=== PATIENT | male | born 1995 | race Caucasian/White ===

== ENCOUNTER 2020-04-19 10:15 | Outpatient (CLI) | payer BC | END 2020-04-19 10:16 | disposition home or self-care (01) | LOC: CTENTCT 10:15 | PROVIDERS: ATTEND Otolaryngology Plastic Surgery within the Head & Neck | DX: J32.9 Chronic sinusitis, unspecified (principal) | CPT/HCPCS: 70486 ==

== ENCOUNTER 2020-05-30 05:57 | Day surgery (SDC) | payer BC ==
[2020-05-29 11:06] VITALS: BMI 29.0
[2020-05-30] MEDS ORDERED: Bacitracin Zinc Ointment 30 gm TUBE ONE (06:46)
[2020-05-30] MEDS ORDERED: Lidocaine 1% w/Epinephrine 1:100K 20 ML VIAL ONE (06:46)
[2020-05-30] MEDS ORDERED: AFRIN NASAL MIST 15 ML BOT ONE ×2 (06:46→07:59)
[2020-05-30] MEDS ORDERED: Fentanyl 100 MCG/2 ML VIAL ONE ×3 (08:10→09:52)
[2020-05-30] MEDS ORDERED: methylPREDNISolone Acetate 40 mg/ml Vial ONE (08:58)
[2020-05-30] MEDS ORDERED: Meperidine HCl/PF 25 MG/ML VIAL ONE (09:35)
[2020-05-30] MEDS ORDERED: Ferric Subsulfate (ASTRINGYN) 8 GM VIAL ONE (09:36)
[2020-05-30] MEDS ORDERED: PROPOFOL 200 MG/20 ML VIAL ONE (09:37)
[2020-05-30] MEDS ORDERED: Lidocaine 1% PF 5 ML VIAL ONE (09:37)
[2020-05-30] MEDS ORDERED: Succinylcholine 200 MG/10 ml SYRINGE FS ONE (09:37)
[2020-05-30] MEDS ORDERED: Rocuronium Bromide 10 MG/ML (10ML VIAL) ONE (09:37)
[2020-05-30] MEDS ORDERED: Dexamethasone 20 MG/5 ML VIAL ONE (09:37)
[2020-05-30] MEDS ORDERED: PROPOFOL 20 ML ONE (09:41)
[2020-05-30] MEDS ORDERED: Hydrocodone-Acetamin 15 ML UDCUP ONE (10:58)
--- NOTE | 2020-05-30 15:39 | OP ---
DATE OF PROCEDURE: 05/30/2020 PREOPERATIVE DIAGNOSES: 1. Nasal septal deviation. 2. Bilateral inferior turbinate hypertrophy. 3. Bilateral nasal valve collapse. 4. Chronic adenotonsillitis. 5. Adenotonsillar hypertrophy. POSTOPERATIVE DIAGNOSES: 1. Nasal septal deviation. 2. Bilateral inferior turbinate hypertrophy. 3. Bilateral nasal valve collapse. 4. Chronic adenotonsillitis. 5. Adenotonsillar hypertrophy. PROCEDURES PERFORMED: 1. Nasal septoplasty. 2. Bilateral inferior turbinate submucosal resection. 3. Bilateral repair of nasal valve collapse. 4. Tonsillectomy and adenoidectomy. ESTIMATED BLOOD LOSS: 20 mL. COMPLICATIONS: None. ANESTHESIA: GETA. DESCRIPTION OF PROCEDURE: TONSILLECTOMY AND ADENOIDECTOMY: After consent was obtained, the patient was identified, brought to the operating room, and placed on the operating table in the supine position. General endotracheal anesthesia and intravenous access was obtained and we proceeded with positioning the patient for oropharyngeal surgery. Oropharyngeal exposure was obtained with a Britton-David mouth gag after a head drape was placed and secured with a towel clip. The Britton-David mouth gag was then suspended from the Liao tray and palatal elevation was achieved with a red rubber catheter. The right tonsil was addressed first. We used a curved Allis to grasp the tonsil and retract it medially as an anterior pillar incision was made. The retrotonsillar fascial plane was then established and blunt dissection was performed with the suction cautery. Blood vessels were anticipated, identified, and cauterized as they were encountered. Ultimately, dissection was carried to the posterior tonsillar pillar mucosa which was incised hemostatically, as well as the base of tongue connection. The tonsil was then passed off as a specimen and bleeding points within the tonsillar bed were cauterized under direct visualization. We subsequently turned our attention to the contralateral side, where using a similar technique, a near identical procedure was performed. Again, the tonsil was grasped and retracted medially with a curved Allis. The retrotonsillar fascial plane was established and while the anterior pillar was retracted medially, the hemostatic blunt dissection of the tonsil with a suction cautery was performed with blood vessels anticipated, identified, and cauterized as they were encountered. Again, dissection continued to the base of tongue and posterior tonsillar pillar mucosa which was incised in a hemostatic fashion. The tonsillar beds were then carefully inspected and bleeding points were identified and cauterized with a suction cautery. After this portion of the procedure, hemostasis was completely obtained. Under direct mirror visualization, we visualized the adenoid pad. Under direct mirror visualization, we removed the bulk of the adenoid tissue with the adenoid curette. We then packed the nasopharynx for an appropriate period of time with Mauro-Synephrine saturated tonsillar sponges. After a period of observation, we removed the pack. Under indirect mirror visualization, we obtained hemostasis and vaporization of residual adenoid tissue with electrocautery. The patient's oral cavity was copiously irrigated with iced saline and subsequently suctioned. After completion of the procedure, the nasal cavity and oropharynx were irrigated and suctioned as were the gastric contents. The patient was then awakened and transferred to the recovery room where the patient remained in stable condition prior to discharge to Day Stay. NASAL SEPTOPLASTY AND BILATERAL INFERIOR TURBINATE SUBMUCOSAL RESECTION: Patient was taken to the operating room and placed supine on the table. General endotracheal anesthesia was obtained by the anesthesia staff. Then 1% lidocaine with 1:100,000 epinephrine was injected into the nasal septum as well as the inferior turbinates. The patient was prepped and draped in standard surgical fashion. The Afrin pledgets were then removed. A [place] incision was made on the left nasal septum. Submucoperichondrial dissection was performed bilaterally of the deviated portions of the septum, which included the maxillary crest and the crest deviation, as well as the mid portion of the septum. Cartilage and bony deviation was removed, leaving a generous caudal and dorsal strut. Any straight pieces of cartilage were then placed within the cartilage press, pressed, straightened, and then placed between the mucoperichondrial flaps, which were then closed using a 4-0 gut stitch. The inferior turbinates were then punctured with the submucosal Coblation machine, and 3 separate coblations were delivered to the anterior inferior portion of the inferior turbinates. Following this, the nasal cavity was irrigated. All debris was removed. An orogastric tube was placed. Gastric contents and Coll[place] splints were then placed in the nasal cavity and sutured with a 3-0 silk stitch. Following this, the approach to the lateral nasal valve collapse was performed through the trans-cartilaginous endonasal incision. Small incision was made and then a sharp elevator was used to elevate the periosteum over the nasal bone. A small graft was placed into this pocket bilaterally, providing support of the nasal bones and extended the support inferiorly to underlay and support the lower lateral cartilages. An incision was then closed using 5-0 gut stitch bilaterally. The patient tolerated the procedure well. Nasal cavity was irrigated. Collado splints were placed and secured. Job ID: [id number] [facility]
== END 2020-05-30 11:30 | disposition home or self-care (01) ==
LOC: SDC 05:57
PROVIDERS: ATTEND Otolaryngology Plastic Surgery within the Head & Neck
PROC: 0CTQXZZ Resection of Adenoids, External Approach (ICD-10-PCS; principal; 2020-05-30)
PROC: 09BM8ZZ Excision of Nasal Septum, Via Natural or Artificial Opening Endoscopic (ICD-10-PCS; principal; 2020-05-30)
PROC: 09TL8ZZ Resection of Nasal Turbinate, Via Natural or Artificial Opening Endoscopic (ICD-10-PCS; principal; 2020-05-30)
PROC: 0CTPXZZ Resection of Tonsils, External Approach (ICD-10-PCS; principal; 2020-05-30)
DX: J35.03 Chronic tonsillitis and adenoiditis (principal); J32.9 Chronic sinusitis, unspecified; J34.2 Deviated nasal septum; J34.3 Hypertrophy of nasal turbinates; H60.60 Unspecified chronic otitis externa, unspecified ear; J45.909 Unspecified asthma, uncomplicated; Z91.018 Allergy to other foods
CPT/HCPCS: 88304; J1100; J2175; J2704; J2920; J3010